=== PATIENT | female | born 1965 | race Caucasian/White ===

== ENCOUNTER → 2018-09-03 | Outpatient (CLI) | payer OTHER ==
[~2018-09-03] MED LIST: GADOBENATE DIMEGLUMINE 1 ML IV ONE
--- NOTE | 2018-09-03 17:30 | Diagnostic Imaging Report ---
Exam: Brain MRI without with IV contrast History: Demyelinating disease Comparison studies: None Technique: Sagittal and axial T2 FLAIR, precontrast axial T1 FLAIR, axial T2, axial DWI and postcontrast axial coronal T1 FS Intravenous contrast: 15 cc MultiHance. Findings: T2 lesion load: Approximately 4-5 subcentimeter foci of increased T2 FLAIR hyperintensity are nonspecific (subcortical right subcentral gyrus, left orbitofrontal and left subinsular white matter). No basal ganglia or posterior fossa lesions identified. T1 hypointense foci: None Enhancing lesions: None Corpus callosum volume: Adequate for age Brain volume: Adequate for age Other: No extra axial fluid collection, hemorrhage, hydrocephalus or acute ischemia. Incidental findings: Small midline posterior nasopharyngeal Tornwaldt cyst. IMPRESSION: 1. No enhancing lesions to indicate acute demyelination/inflammation. 2. A few small nonenhancing foci of signal in the supratentorial white matter are nonspecific but can be seen with the clinical diagnosis of demyelinating disease. Signed by: Dr. Clyde Watson M.D. on 09/03/2018 5:27 PM
== END ==
LOC: MRI 15:53
PROVIDERS: ATTEND Psychiatry & Neurology Neurology
DX: R93.0 Abnormal findings on diagnostic imaging of skull and head, not elsewhere classified (principal)
CPT/HCPCS: 70553